=== PATIENT | female | born 1995 | race Caucasian/White ===

== ENCOUNTER 2018-12-09 18:07 | Emergency (ER) | payer SELFPAY ==
[~2018-12-09] VITALS: Ht 167.6 cm; Wt 75.5 kg
[2018-12-09] MEDS ORDERED: BENZOCAINE/MENTHOL LOZENGE PO ONE (18:45)
[2018-12-09] MEDS ORDERED: DEXAMETHASONE 4 MG TABLET PO ONE (19:30)
[2018-12-09 19:44] VITALS: BP 116/74
== END 2018-12-09 20:00 | disposition home or self-care (01) ==
LOC: EMS 18:08
DX: J02.8 Acute pharyngitis due to other specified organisms (principal); B97.89 Other viral agents as the cause of diseases classified elsewhere
CPT/HCPCS: 87430; 99283; J8540